=== PATIENT | female | born 1930 | race Caucasian/White ===

== ENCOUNTER 2018-07-26 06:16 | Inpatient (IN) | payer OTHER, BC ==
[2018-07-26 06:32] VITALS: BMI 24.4
[2018-07-26] MEDS ORDERED: dilTIAZem HCL 50 MG/10 ML - 10 ML VIAL ONE (06:33)
[2018-07-26] MEDS ORDERED: dilTIAZem HCL 50 MG/10 ML - 10 ML VIAL IVPUSH ONE ×2 (06:33→23:38)
[2018-07-26] MEDS ORDERED: NITROGLYCERIN SUBLINGUAL 1/150 0.4 MG TAB SL ONE (06:33)
[2018-07-26] MEDS ORDERED: SODIUM CHLORIDE 0.9% 500 ML INFUS.BAG IV ONE (06:34)
[2018-07-26] MEDS ORDERED: ACETAMINOPHEN 1000 MG/100 ML VIAL (NON FORMULARY) IVPB ONE (06:40)
[2018-07-26] MEDS ORDERED: CEFTRIAXONE 1 GM in DEXTROSE 5%-WATER - 100 ML IVPB ONE (06:41)
--- NOTE | 2018-07-26 06:43 | PDOC ---
History of Present Illness - General Chief Complaint: Shortness of Breath Stated Complaint: SOB Time Seen by Provider: 07/26/18 06:20 History Source: Patient, Family Exam Limitations: No Limitations - History of Present Illness Initial Comments: 07/26/18 06:59 Pt comes with SOB and not feeling well. She is visiting from [facility] where her PMD is. Timing/Duration: 1-3 hours, 4-6 hours Severity: severe Associated Symptoms: reports: cough, fever/chills, malaise, shortness of breath , weakness Past History - Travel Traveled outside of the country in the last 30 days: No - Past Medical History Allergies/Adverse Reactions: Allergies Allergy/AdvReac Type Severity Reaction Status Date / Time Sulfa (Sulfonamide Allergy Verified 07/26/18 06:32 Antibiotics) Home Medications: Ambulatory Orders Atenolol [Tenormin] 25 mg PO DAILY 07/26/18 Digoxin [Lanoxin -] 0.125 mg PO DAILY 07/26/18 Diltiazem HCl [Diltiazem ER] 360 mg PO DAILY 07/26/18 Furosemide [Lasix] 20 mg PO DAILY 07/26/18 Prednisone 5 mg PO DAILY 07/26/18 Sertraline HCl 100 mg PO DAILY 07/26/18 Tramadol HCl PRN 07/26/18 Warfarin Sodium [Coumadin] 2.5 mg PO DAILY 07/26/18 Cardiac Disorders: Yes (AFIB) COPD: No HTN: Yes Psychiatric Problems: Yes (DEPRESSION) Other medical history: ARTHRITIS - Suicide/Smoking/Psychosocial Hx Smoking History: Never smoked Substance Use Type: None Review of Systems - Review of Systems Able to Perform ROS?: Yes Is the patient limited Nigerien proficient: No Constitutional: Yes: Diaphoresis, Fever, Malaise. No: Symptoms Reported, See HPI, Chills, Loss of Appetite, Night Sweats, Weakness, Weight Stable, Unintentional Wgt. Loss, Unexplained wgt Loss, Other HEENTM: No: Symptoms Reported, See HPI, Eye Pain, Blurred Vision, Tearing, Recent change in vision, Double Vision, Cataracts, Ear Pain, Ocular Prothesis, Ear Discharge, Nose Pain, Nose Congestion, Tinnitus, Nose Bleeding, Hearing Loss , Throat Pain, Throat Swelling, Mouth Pain, Dental Problems, Difficulty Swallowing, Mouth Swelling, Other Respiratory: Yes: Cough, Shortness of Breath, Wheezing. No: Symptoms reported, See HPI, Orthopnea, SOB with Exertion, SOB at Rest, Stridor, Productive cough, Hemoptysis, Other Cardiac (ROS): Yes: Irregular Heart Rate. No: Symptoms Reported, See HPI, Chest Pain, Edema, Lightheadedness, Palpitations, Syncope, Chest Tightness, Other ABD/GI: No: Symptoms Reported, See HPI, Abdominal Distended, Abd. Pain w/ defecation, Blood Streaked Bowels, Constipated, Diarrhea, Difficulty Swallowing , Nausea, Poor Appetite, Poor Fluid Intake, Rectal Bleeding, Vomiting, Indigestion, Abdominal cramping, Tarry Stools, Other : No: Symptoms Reported, See HPI, Burning, Dysuria, Discharge, Frequency, Flank Pain, Hematuria, Incontinence, Pain, Urgency, Testicular Mass, Testicular Swelling, Lesions, Testicular Pain, Other Musculoskeletal: No: Symptoms Reported, See HPI, Back Pain, Gout, Joint Pain, Joint Swelling, Muscle Pain, Muscle Weakness, Neck Pain, Joint Stiffness, Other Integumentary: No: Symptoms Reported, See HPI, Bruising, Change in Color, Change in Hair/Nails, Dryness, Erythema, Flushing, Lesions, Lumps, Pallor, Pruritus, Rash, Sweating, Other Psychiatric: No: Anxiety, Depression, Frequent Crying, Stressors, Sleep Pattern Change, Emotional Problems, Mood Swings, Change in Appetite, Other *Physical Exam - Vital Signs Last Vital Signs Temp Pulse Resp BP Pulse Ox 152 H 30 H 161/93 100 07/26/18 06:22 07/26/18 06:22 07/26/18 06:22 07/26/18 06:22 - Physical Exam General Appearance: Yes: Nourished, Severe Distress. No: Appropriately Dressed , Apparent Distress, Disheveled, Mild Distress, Moderate Distress, Alcohol on Breath, Intoxicated, Cachetic, Obese, Thin, Other HEENT: positive: EOMI, TO, Normal ENT Inspection, Normal Voice, Symmetrical, TMs Normal, Pharynx Normal. negative: Pale Conjunctivae, Photophobia, Scleral Icterus (R), Scleral Icterus (L), Muffled/Hoarse voice, Pharyngeal Erythema, Tonsillar Exudate, Tonsillar Erythema, Nasal Congestion, Rhinorrhea, Sinus Tenderness, Orbits, Hearing Decreased, Hearing Grossly Normal, TM Bulging, TM Dull, TM Erythema, Lesions, Dailey, Excessive drooling, Thrush, Other Neck: positive: Trachea midline, Supple. negative: Tender, Normal Thyroid, Rigid, Carotid bruit, Decreased range of motion, Stridor, Lymphadenopathy (R), Lymphadenopathy (L), Rigidity, Tender lateral, Tender midline, Thyromegaly, Other Respiratory/Chest: positive: Labored Respiration, Rales, Rhonchi. negative: Chest Tender, Lungs Clear, Normal Breath Sounds, Respiratory Distress, Accessory Muscle Use, Rapid RR, Decreased Breath Sounds, Paradoxal Breathing, Crackles, Stridor, Wheezing, Hyperresonant, Dullness, Plerual Rub, Other Cardiovascular: positive: Tachycardia, Irregularly Irregular. negative: Regular Rhythm, Regular Rate, S1, S2, Edema, JVD, Murmur, Bradycardia, Diastolic Murmur, Systolic Murmur, Gallop/S3, Gallop/S4, Irregular, Other Female Pelvic Exam: positive: normal external exam. negative: cervical os closed, normal adnexa, normal size ovaries, CMT, discharge, lesions, Bartholin mass, Scalene Gland, adnexal tenderness, uterus, Urethra, vaginal bleeding, other Gastrointestinal/Abdominal: positive: Normal Bowel Sounds, Flat, Soft. negative : Tender, Organomegaly, Pulsatile Mass, Increased Bowel Sounds, Decreased BS, Protuberent, Distended, Guarding, Rebound, Tenderness, Hernia, Mass, Hepatomegaly, Spleenomegaly, Other Musculoskeletal: positive: Normal Inspection. negative: CVA Tenderness Extremity: positive: Normal Capillary Refill, Normal Inspection, Normal Range of Motion, Pelvis Stable. negative: Tender, Coldness, Cyanosis, Delayed Capillary Refill, Pedal Edema, Swelling, Calf Tenderness, Erythema, Inflammation , Other Integumentary: positive: Normal Color, Dry, Warm. negative: Cyanotic, Erythema , Jaundice, Mottled, Pale, Cold, Clammy, Diaphoresis, Moist, Hives, Petechiae, Rash, Swelling, Ecchymosis, Bruising, Other Neurologic: positive: municipal clerk II-XII NML intact, Fully Oriented, Alert, Normal Mood/ Affect, Normal Response (pt has pitting edema of legs), Motor Strength 5/5 Medical Decision Making - Medical Decision Making 07/26/18 07:02 Pt arrived with EMS; BP >188 systolic. 100% NRB; SOB and tachyarrhythmia Given 3 SLNTG as well as 10 diltiazem. BP came down to 145systolic and HR went from 140s to 80s. Pt's bloods drawn; lactic acid and blood culture as she is febriole 100.7F Pt received ofirmev and lasix 40mgIV Drew cath placed. Pt received 1g Rocephin. SHE STILL REQUIRES zithromax Labs pending. CXR ordered. BiPAP called for - on standby, as pt improved with initial care. Pt likely pneumonia, rapid afib; APE. She went out yesterday and ate salty foods and things that she usually never eats. Pt will be signed out to the day attending. She needs admission to med surg HOSPITALIST *DC/Admit/Observation/Transfer Diagnosis at time of Disposition: Pneumonia, Rapid atrial fibrillation, Pulmonary edema - Discharge Dispostion Condition at time of disposition: Guarded - Referrals - Patient Instructions - Post Discharge Activity
[2018-07-26] MEDS ORDERED: ACETAMINOPHEN INJECTION 100 ML IVPB ONE (06:47)
[2018-07-26] MEDS ORDERED: cefTRIAXone SODIUM 1 GM VIAL ONE (06:47)
[2018-07-26] MEDS ORDERED: FUROSEMIDE 40 MG/4 ML INJECTABLE VIAL IVPUSH ONE (06:58)
[2018-07-26] MEDS ORDERED: FUROSEMIDE 40 MG/4 ML INJECTABLE VIAL ONE (06:59)
[2018-07-26] MEDS ORDERED: AZITHROMYCIN IVPB 500 MG in DEXTROSE 5%-WATER - 250 ML IVPB ONE (07:09)
[2018-07-26] MEDS ORDERED: AZITHROMYCIN 500 MG VIAL IVPB ONE (07:14)
--- NOTE | 2018-07-26 07:53 | PDOC ---
*Physical Exam - Vital Signs Last Vital Signs Temp Pulse Resp BP Pulse Ox 100.7 F H 92 H 26 H 146/67 97 07/26/18 06:40 07/26/18 07:12 07/26/18 07:12 07/26/18 06:40 07/26/18 07:12 - Physical Exam Comments: 07/26/18 07:42 GENERAL: Awake, alert, and fully oriented, in no acute distress EYES: PERRLA, sclera anicteric, conjunctiva clear ENT: Hard of hearing. Moist mucosa NECK: no JVD LUNGS: +Rales at R lung base. Good air movement. No crackles. No increased WOB HEART: Irregularly irregular, rate fluctuating btwn 90s-130s. +3/6 systolic ejection murmur ABDOMEN: Soft, nontender, normoactive bowel sounds. No guarding, no rebound. No masses RECTAL: no bleeding, temp 100.7 EXTREMITIES: WWP. 1+ symmetric b/l pitting edema to the knees b/l NEUROLOGICAL: Normal speech, cranial nerves intact, 5/5 strength in all 4 extremities, normal sensation to light touch in all 4 extremities SKIN: Warm, Dry, normal turgor, no rashes or lesions noted. ED Treatment Course - LABORATORY CBC & Chemistry Diagram: 07/26/18 06:45 07/26/18 06:45 - RADIOLOGY Radiology Studies Ordered: Category Date Time Status CHEST X-RAY PORTABLE* [RAD] Stat Radiology 07/26/18 07:33 Ordered - Medications Given in the ED: ED Medications Discontinued Medications Generic Name Dose Route Start Last Admin Trade Name Aramq PRN Reason Stop Dose Admin Acetaminophen 1,000 mg 07/26/18 06:40 07/26/18 07:00 Ofirmev Injection - IVPB 07/26/18 06:41 1,000 mg ONCE ONE Administration Diltiazem HCl 10 mg 07/26/18 06:33 07/26/18 06:39 Cardizem Injection - IVPUSH 07/26/18 06:34 10 mg ONCE ONE Administration Furosemide 40 mg 07/26/18 06:58 07/26/18 07:10 Lasix Injection - IVPUSH 07/26/18 06:59 40 mg ONCE ONE Administration Ceftriaxone Sodium 1 gm/ 100 mls @ 200 mls/hr 07/26/18 06:41 07/26/18 07:10 Dextrose IVPB 07/26/18 07:10 200 mls/hr ONCE ONE Administration Protocol Nitroglycerin 1.2 mg 07/26/18 06:33 07/26/18 06:39 Nitrostat - SL 07/26/18 06:34 1.2 mg ONCE ONE Administration Sodium Chloride 250 ml 07/26/18 06:34 07/26/18 07:20 Normal Saline - IV 07/26/18 06:35 Not Given ONCE ONE Medical Decision Making - Medical Decision Making 07/26/18 07:53 Care recieved at 0700 Briefly, 88-year-old female with MMP including CHF presents with acute pulmonary edema, fever. Patient is now s/p 3 sublingual nitroglycerin, IV lasix 40 mg, ceftriaxone 1 g, Zithromax 500mg, acetaminophen 1G, diltiazem 10mg. On evaluation, HR fluctuating btwn 90s-140s, BP 140/80, RR 20, sat 100% Pt in NAD, states she feels much better, denies CP, +minimal SOB. Exam with rales at lung base, systolic murmur, trace to 1+ LE pitting edema. EKG reviewed, +CARLOS EDUARDO in AVR and diffuse inferiolateral STD, likely rate related but will repeat once rate controlled. Pt with no CP and minimal SOB at this time , unlikely ACS. Will hold off on bipap in light of response to medications so far and clinical improvement All labs pending Added digoxin level, CXR Also ordered home dose of diltiazem 360mg ER (confirmed pt usually takes in AM with her daughter) Will hold off on atenolol given acute decompensated CHF Likely APE after high salt intake yesterday but given fever, pt may also have superimposed PNA. Murmur/RVR likely contributing to pulm edema. Discussed dispo with son, pt will need transfer to [facility] ICU vs tele once workup more complete. Plan to also call cards c/s 07/26/18 10:12 Pt clinically improved HR now down to 90s-110s CXR with mild congestion, +cardiomegaly Case discussed with Dr. Don (cards), will send pt down to [facility] tele. Also discussed EKG, agrees it likely to be rate related changes and not STEMI in absence of CP/SOB Case discussed with Dr. Huntley - pt admitted to telemetry Case discussed in detail with admitting physician including history, physical exam and ancillary studies. Admitting physician has assumed care for the patient, will follow all pending diagnostics and will complete the evaluation and treatment. 07/26/18 14:39 Pt and son do not want to go down to [facility] and prefer to stay at [facility] Explained to patient that while she is stable now, if her clinical condition were to go south, we do not have the same resources here at [facility]. I explained that we do not have an ICU here which means if she were to decompensate, she would have to be transferred out. I also explained that aircraft load controller Dr. Don recommends she go down to [facility] as well, especially because we do not know the extent of her CHF (unknown EF). Pt and son express understanding of this recommendation and the risks of staying, but still prefer to stay at [facility] [place]. Pt's son states they have a DNR for their mother should her heart stop. Updated Dr. Don/Audi about the above. Will request bed at [facility]. *DC/Admit/Observation/Transfer Diagnosis at time of Disposition: Pneumonia, Rapid atrial fibrillation, Pulmonary edema - Discharge Dispostion Condition at time of disposition: Guarded Decision to Admit order: Yes - Referrals - Patient Instructions - Post Discharge Activity - Attestations Physician Attestion: 07/26/18 10:14 I, Dr. Josefina Toney MD, attest that this document has been prepared under my direction and personally reviewed by me in its entirety. I further attest, that it accurately reflects all work, treatment, procedures and medical decision -making performed by me.
[2018-07-26 08:34] LABS: BASO % 0.1 % (0-2.0); EOS % 0.6 % (0-4.5); HEMATOCRIT 38.9 % (32.4-45.2); HEMOGLOBIN 12.6 GM/dl (10.7-15.3); LYMPH % 9.7 % (8-40); MCH 29.7 pg (25.7-33.7); MCHC 32.5 g/dl (32.0-36.0); MEAN CELL VOLUME 91.5 fl (80-96); MEAN PLT VOLUME 8.5 fl (7.5-11.1); MONO % 5.5 % (3.8-10.2); NEUT % 84.1 % (42.8-82.8); PLATELET COUNT 309 K/MM3 (134-434); RBC 4.25 M/mm3 (3.60-5.2); RDW 14.4 % (11.6-15.6); WHITE BLOOD COUNT 12.7 K/mm3 (4.0-10.8)
[2018-07-26 08:50] LABS: ALBUMIN 3.7 g/dl (3.5-5.0); ALK PHOS 95 U/L (32-92); ANION GAP 10 MMOL/L (8-16); BILIRUBIN,TOTAL 0.8 mg/dl (0.2-1.0); BLOOD UREA NITROGEN 27 mg/dl (7-18); CALCIUM 8.8 mg/dl (8.4-10.2); CHLORIDE 99 mmol/L (98-107); CO2 26 mmol/L (22-28); CREATININE 0.7 mg/dl (0.6-1.3); GLUCOSE,RANDOM 144 mg/dl (74-106); POTASSIUM 3.5 mmol/L (3.5-5.1); SGOT/AST 44 U/L (10-42); SGPT/ALT 42 U/L (10-40); SODIUM 135 mmol/L (136-145); TOT PROT 7.1 g/dl (6.4-8.3)
[2018-07-26 08:56] LABS: URINE APPEARANCE Clear; URINE BILIRUBIN Negative (NEGATIVE); URINE COLOR Yellow; URINE GLUCOSE (UA) Trace (NEGATIVE); URINE KETONE Negative (NEGATIVE); URINE LEUK ESTERASE Negative (NEGATIVE); URINE NITRITE Negative (NEGATIVE); URINE PROTEIN 3+ (NEGATIVE); URINE UROBILINOGEN 0.2 (0.2-1.0)
[2018-07-26 09:25] LABS: ACTIVATED PTT 39.5 SECONDS (25.2-36.5)
[2018-07-26 09:29] LABS: INR 3.87 (0.82-1.09); PROTHROMBIN TIME (PATIENT) 42.2 SEC (10.2-13.0)
[2018-07-26 09:33] LABS: EPI CELLS FEW /HPF; URINE BACTERIA FEW /hpf (NEGATIVE)
[2018-07-26 09:34] LABS: URINE CASTS FINELY GRANULAR 0-1 /hpf
[2018-07-26 10:19] LABS: N-TERMINAL BNP 1610.4 pg/ml (5-450)
[2018-07-26] MEDS ORDERED: ENOXAPARIN NA (PORCINE) 40 MG/0.4 ML DISP.SYRIN SQ SCH (14:45)
--- NOTE | 2018-07-26 17:08 | EKG ---
Test Reason : Blood Pressure : / mmHG Vent. Rate : 113 BPM Atrial Rate : 092 BPM P-R Int : 000 ms QRS Dur : 080 ms QT Int : 338 ms P-R-T Axes : 000 055 186 degrees QTc Int : 463 ms ATRIAL FIBRILLATION WITH RAPID VENTRICULAR RESPONSE MODERATE VOLTAGE CRITERIA FOR LVH, MAY BE NORMAL VARIANT MARKED ST ABNORMALITY, POSSIBLE INFEROLATERAL SUBENDOCARDIAL INJURY ABNORMAL ECG NO PREVIOUS ECGS AVAILABLE Confirmed by MD Rony, ([id number]) on 07/26/2018 5:07:57 PM Referred By: MD TAVERA Confirmed By:Daniel Uribe MD
[2018-07-26] MEDS ORDERED: TRAMADOL HCL 50 MG PO PRN (19:23)
[2018-07-26] MEDS: DIGOXIN 0.125 MG TABLET (FP) PO ONE ×2 (19:55→19:56)
[2018-07-26] MEDS ORDERED: ATENOLOL 25 MG TABLET (FP) PO SCH (20:00)
[2018-07-26] MEDS ORDERED: traMADol HCL 50 MG TABLET PO PRN ×2 (20:07→23:12)
[2018-07-26 21:15] LABS: ANION GAP 10 MMOL/L (8-16); BLOOD UREA NITROGEN 18 mg/dl (7-18); CALCIUM 8.7 mg/dl (8.4-10.2); CHLORIDE 99 mmol/L (98-107); CO2 27 mmol/L (22-28); CREATININE 0.7 mg/dl (0.6-1.3); GLUCOSE,RANDOM 130 mg/dl (74-106); POTASSIUM 3.4 mmol/L (3.5-5.1); SODIUM 136 mmol/L (136-145)
[2018-07-26] MEDS ORDERED: POTASSIUM CHLORIDE TABS 20 MEQ TABLET.ER (FP) PO ONE (23:08)
--- NOTE | 2018-07-26 23:23 | HP ---
CHIEF COMPLAINT: SOB, palpitations, not feeling well PCP: dillon Lockett HISTORY OF PRESENT ILLNESS: This is an 88 year old female with a past medical history significant for afib on coumadin and HTN who presented to the ED due to SOB, palpitations and not feeling well. Pt was noted to be febrile upon arrival to the ED. Upon exam pt reports feeling much better. The SOB and palpitations have resolved. ER course was notable for: (1) Trop 0.04 (2) BNP 1610 (3) lactic acid 2.5, then up to 3.4 Recent Travel: pt denies PAST MEDICAL HISTORY: HTN, Afib on coumadin, depression, arthritis PAST SURGICAL HISTORY: appendectomy as a child Social History: Smoking: pt denies Alcohol: pt denies Drugs: pt denies Family History: Family all lived in [facility], unknown COD. Brother "young" but unknown why Allergies Sulfa (Sulfonamide Antibiotics) Allergy (Verified 07/26/18 06:32) HOME MEDICATIONS: 3 Medication Instructions Recorded Atenolol [Tenormin] 25 mg PO DAILY 07/26/18 Digoxin [Lanoxin -] 0.125 mg PO DAILY 07/26/18 Diltiazem HCl [Diltiazem ER] 360 mg PO DAILY 07/26/18 Furosemide [Lasix] 20 mg PO DAILY 07/26/18 Prednisone 5 mg PO DAILY 07/26/18 Sertraline HCl 100 mg PO DAILY 07/26/18 Tramadol HCl 50 mg PO QID PRN MDD 200 07/26/18 Warfarin Sodium [Coumadin] 2.5 mg PO DAILY 07/26/18 REVIEW OF SYSTEMS CONSTITUTIONAL: Absent: fever, chills, diaphoresis, generalized weakness, malaise, loss of appetite, weight change HEENT: Absent: rhinorrhea, nasal congestion, throat pain, throat swelling, difficulty swallowing, mouth swelling, ear pain, eye pain, visual changes CARDIOVASCULAR: Present: palpitations Absent: chest pain, syncope, irregular heart rate, lightheadedness, peripheral edema RESPIRATORY: Present: shortness of breath Absent: cough, dyspnea with exertion, orthopnea, wheezing, stridor, hemoptysis GASTROINTESTINAL: Absent: abdominal pain, abdominal distension, nausea, vomiting, diarrhea, constipation, melena, hematochezia GENITOURINARY: Absent: dysuria, frequency, urgency, hesitancy, hematuria, flank pain, genital pain MUSCULOSKELETAL: Absent: myalgia, arthralgia, joint swelling, back pain, neck pain SKIN: Absent: rash, itching, pallor HEMATOLOGIC/IMMUNOLOGIC: Absent: easy bleeding, easy bruising, lymphadenopathy, frequent infections ENDOCRINE: Absent: unexplained weight gain, unexplained weight loss, heat intolerance, cold intolerance NEUROLOGIC: Absent: headache, focal weakness or paresthesias, dizziness, unsteady gait, seizure, mental status changes, bladder or bowel incontinence PSYCHIATRIC: Absent: anxiety, depression, suicidal or homicidal ideation, hallucinations. PHYSICAL EXAMINATION Vital Signs - 24 hr 07/26/18 07/26/18 07/26/18 06:22 06:40 07:12 Temperature 100.7 F H Pulse Rate 152 H Pulse Rate [ 121 H 92 H Apical] Respiratory 30 H 24 H 26 H Rate Blood Pressure 161/93 Blood Pressure 146/67 [Arm] O2 Sat by Pulse 100 97 Oximetry (%) 07/26/18 07/26/18 07/26/18 07:43 10:13 11:11 Temperature 99.1 F Pulse Rate Pulse Rate [ 114 H 103 H 87 Apical] Respiratory 20 18 20 Rate Blood Pressure Blood Pressure 134/74 131/93 147/90 [Arm] O2 Sat by Pulse 96 98 98 Oximetry (%) 07/26/18 07/26/18 07/26/18 11:48 12:15 13:29 Temperature 99.1 F Pulse Rate 93 H Pulse Rate [ 83 73 Apical] Respiratory 20 18 Rate Blood Pressure Blood Pressure 142/83 133/54 L [Arm] O2 Sat by Pulse 99 98 99 Oximetry (%) 07/26/18 07/26/18 07/26/18 15:35 16:58 17:11 Temperature 97.8 F Pulse Rate 68 Pulse Rate [ 65 Apical] Respiratory 17 18 Rate Blood Pressure 137/82 Blood Pressure 140/83 [Arm] O2 Sat by Pulse 98 98 Oximetry (%) 07/26/18 07/26/18 07/26/18 19:00 19:55 20:08 Temperature 99.1 F Pulse Rate 120 H 123 H Pulse Rate [ Apical] Respiratory 21 H 21 H Rate Blood Pressure 154/84 Blood Pressure [Arm] O2 Sat by Pulse 98 Oximetry (%) GENERAL: Awake, alert, and fully oriented, in no acute distress. HEAD: Normal with no signs of trauma. EYES: Pupils equal, round and reactive to light, extraocular movements intact, sclera anicteric, conjunctiva clear. No lid lag. EARS, NOSE, THROAT: Ears normal, nares patent, oropharynx clear without exudates. Moist mucous membranes. NECK: Normal range of motion, supple without lymphadenopathy, JVD, or masses. LUNGS: Breath sounds equal, clear to auscultation bilaterally. No wheezes, and no crackles. No accessory muscle use. HEART: Irregular rate and rhythm, normal S1 and S2 without murmur, rub or gallop. ABDOMEN: Soft, nontender, not distended, normoactive bowel sounds, no guarding, no rebound, no masses. No hepatomegaly or splenomegaly. MUSCULOSKELETAL: Normal range of motion at all joints. No bony deformities or tenderness. No CVA tenderness. UPPER EXTREMITIES: 2+ pulses, warm, well-perfused. No cyanosis. No clubbing. No peripheral edema. LOWER EXTREMITIES: 2+ pulses, warm, well-perfused. No calf tenderness. No peripheral edema. NEUROLOGICAL: Cranial nerves II-XII intact. Normal speech. Normal gait. PSYCHIATRIC: Cooperative. Good eye contact. Appropriate mood and affect. SKIN: Warm, dry, normal turgor, no rashes or lesions noted, normal capillary refill. Laboratory Results - last 24 hr 3 07/26/18 07/26/18 07/26/18 06:45 06:45 06:45 WBC 12.7 H RBC 4.25 Hgb 12.6 Hct 38.9 MCV 91.5 MCH 29.7 MCHC 32.5 RDW 14.4 Plt Count 309 MPV 8.5 Absolute Neuts (auto) 10.7 Neutrophils % 84.1 H Lymphocytes % 9.7 Monocytes % 5.5 Eosinophils % 0.6 Basophils % 0.1 PT with INR 42.2 H INR 3.87 H PTT (Actin FS) 39.5 H Sodium Potassium Chloride Carbon Dioxide Anion Gap BUN Creatinine Creat Clearance w eGFR Random Glucose Lactic Acid Calcium Total Bilirubin AST ALT Alkaline Phosphatase Creatine Kinase Troponin I B-Natriuretic Peptide Total Protein Albumin Urine Color Yellow Urine Appearance Clear Urine pH 7.0 Ur Specific [place] 1.025 Urine Protein 3+ H Urine Glucose (UA) Trace Urine Ketones Negative Urine Blood Trace-intact H Urine Nitrite Negative Urine Bilirubin Negative Urine Urobilinogen 0.2 Ur Leukocyte Esterase Negative Urine RBC 2-5 Urine WBC 2-5 Ur Epithelial Cells Few Urine Bacteria Few Urine Casts Finely granular 0-1 Digoxin 3 07/26/18 07/26/18 07/26/18 06:45 06:45 07:26 07:31 14:56 15:02 WBC RBC Hgb Hct MCV MCH MCHC RDW Plt Count MPV Absolute Neuts (auto) Neutrophils % Lymphocytes % Monocytes % Eosinophils % Basophils % PT with INR INR PTT (Actin FS) Sodium 135 L Potassium 3.5 Chloride 99 Carbon Dioxide 26 Anion Gap 10 BUN 27 H Creatinine 0.7 Creat Clearance w eGFR > 60 Random Glucose 144 H Lactic Acid 2.5 H* 3.4 H* Calcium 8.8 Total Bilirubin 0.8 AST 44 H ALT 42 H Alkaline Phosphatase 95 H Creatine Kinase 29 29 Troponin I 0.04 0.06 B-Natriuretic Peptide 1610.4 H Total Protein 7.1 Albumin 3.7 Urine Color Urine Appearance Urine pH Ur Specific [place] Urine Protein Urine Glucose (UA) Urine Ketones Urine Blood Urine Nitrite Urine Bilirubin Urine Urobilinogen Ur Leukocyte Esterase Urine RBC Urine WBC Ur Epithelial Cells Urine Bacteria Urine Casts Digoxin Cancelled 0.99 3 07/26/18 07/26/18 07/26/18 20:40 20:40 20:40 WBC RBC Hgb Hct MCV MCH MCHC RDW Plt Count MPV Absolute Neuts (auto) Neutrophils % Lymphocytes % Monocytes % Eosinophils % Basophils % PT with INR INR PTT (Actin FS) Sodium 136 Potassium 3.4 L Chloride 99 Carbon Dioxide 27 Anion Gap 10 BUN 18 Creatinine 0.7 Creat Clearance w eGFR > 60 Random Glucose 130 H Lactic Acid 2.1 H Calcium 8.7 Total Bilirubin AST ALT Alkaline Phosphatase Creatine Kinase 28 Troponin I 0.05 B-Natriuretic Peptide Total Protein Albumin Urine Color Urine Appearance Urine pH Ur Specific [place] Urine Protein Urine Glucose (UA) Urine Ketones Urine Blood Urine Nitrite Urine Bilirubin Urine Urobilinogen Ur Leukocyte Esterase Urine RBC Urine WBC Ur Epithelial Cells Urine Bacteria Urine Casts Digoxin ECG Atrial fibrillation vent rate 78, QTC 453 mod voltage criteria for LVH ST depression lead II, v4-V6; TWI lead 3, aVF Radiology Reports CXR Impression: Enlarged cardiac silhouette. Mild pulmonary vascular congestion. No evidence of airspace consolidation. No sizable pleural effusion. Reported By: Valerie Dunbar DO 07/26/18 0849 ASSESSMENT/PLAN: 88yF with PMH Afib on coumadin, HTN, depression, arthritis presented to the ED with SOB and palpitations. Afib with RVR - rate variable 80s-120s, currently febrile. Will give tylenol. if not improved then cardizem IVP - cardiology consult - troponin neg x 3 - cont tele supratherapeutic INR - no s/s bleeding, hold coumadin CHF - echo in am - good response to lasix >2L output - cardiology consult - will defer daily lasix dosing to cardiology in am - daily weights - I&O HTN - BP slightly elevated, cont home meds, adjust if remains persistently elevated fever - CXR without clear infiltrate, u/a without indication of UTI - given zithro and ceftriaxone in ed - flu swab taken - consider CT scan Hypokalemia - kdur 20mEq po now, repeat in am depression - cont home sertraline arthritis - cont home tramadol DVT PPX - resume home coumadin when INR less than 3 FEN - hold IVF - BMP in am - low sodium diet as tolerated Dispo: pt currently requires further inpatient management of her emergent condition Visit type - Emergency Visit Emergency Visit: Yes ED Registration Date: 07/26/18 Care time: The patient presented to the Emergency Department on the above date and was hospitalized for further evaluation of their emergent condition. - New Patient This patient is new to me today: Yes Date on this admission: 07/26/18 - Critical Care Critical Care patient: No Hospitalist Screening - Colonoscopy Questionnaire Colonoscopy Questionnaire: Colonoscopy Questionnaire - Patient: 50 - 75 years old and never had a screening colonoscopy: No History of colon or rectal polyps, or CA: Unknown History of IBD, Crohn's disease or UC: Unknown History of abdominal radiation therapy as a child: Unknown - Relative: 1 with colon or rectal CA, or polyps at age 60 or younger: Unknown Colon or rectal CA diagnosed at age 45 or younger: Unknown Multiple relatives with colon or rectal CA: Unknown - Outcome: Screening Result: Negative Screen
[2018-07-26] MEDS: ACETAMINOPHEN 325 MG TABLET (FP) PO PRN (23:50)
[2018-07-27] MEDS ORDERED: dilTIAZem HCL 50 MG/10 ML - 10 ML VIAL IVPUSH ONE ×2 (01:15→09:00)
[2018-07-27] MEDS ORDERED: diphenhydrAMINE HCL 25 MG CAPSULE (FP) PO ONE (02:07)
[2018-07-27] MEDS: ACETAMINOPHEN 325 MG TABLET (FP) PO PRN ×2 (07:19→17:32)
[2018-07-27 07:53] LABS: BASO % 0.3 % (0-2.0); EOS % 0.9 % (0-4.5); HEMATOCRIT 39.2 % (32.4-45.2); HEMOGLOBIN 12.6 GM/dl (10.7-15.3); LYMPH % 10.2 % (8-40); MCH 29.6 pg (25.7-33.7); MCHC 32.3 g/dl (32.0-36.0); MEAN CELL VOLUME 91.9 fl (80-96); MEAN PLT VOLUME 8.2 fl (7.5-11.1); MONO % 9.6 % (3.8-10.2); PLATELET COUNT 267 K/MM3 (134-434); RBC 4.26 M/mm3 (3.60-5.2); RDW 14.2 % (11.6-15.6); WHITE BLOOD COUNT 7.5 K/mm3 (4.0-10.8)
[2018-07-27 08:08] LABS: BLOOD UREA NITROGEN 13 mg/dl (7-18); CREATININE < 0.6 mg/dl (0.6-1.3); GLUCOSE,RANDOM 134 mg/dl (74-106)
[2018-07-27 08:09] LABS: ALBUMIN 3.5 g/dl (3.5-5.0); ANION GAP 10 MMOL/L (8-16); BILIRUBIN,TOTAL 1.2 mg/dl (0.2-1.0); CALCIUM 8.5 mg/dl (8.4-10.2); CHLORIDE 101 mmol/L (98-107); CO2 26 mmol/L (22-28); MAGNESIUM 1.9 mg/dL (1.8-2.4); POTASSIUM 3.5 mmol/L (3.5-5.1); SODIUM 137 mmol/L (136-145); TOT PROT 6.9 g/dl (6.4-8.3)
[2018-07-27 08:10] LABS: ALK PHOS 65 U/L (32-92); SGOT/AST 30 U/L (10-42); SGPT/ALT 32 U/L (10-40)
[2018-07-27] MEDS ORDERED: MAGNESIUM SULF 50% (8.12 MEQ/2 ML-1 GM VIAL) IVPB ONE (08:11)
--- NOTE | 2018-07-27 08:12 | PN ---
Physical Exam: SUBJECTIVE: Patient seen and examined, patient is sitting up in bed, eating breakfast, denies any chest pain or shortness of breath. reports discomfort from maddox cather. OBJECTIVE: Patient is a 88 y/o female with a past medical history of afib ( coumadin), hypertension, HLD, and depression. Patient was admitted from the emergency department for rapid afib and fever of unknown injury. Vital Signs Period Temp Pulse Resp BP Sys/Salmeron Pulse Ox Last 24 Hr 97.8 F-101.3 F 65-136 17-21 131-162/54-93 91-99 GENERAL: The patient is awake, alert, and fully oriented, in no acute distress. HEAD: Normal with no signs of trauma. EYES: PERRL, extraocular movements intact, sclera anicteric, conjunctiva clear. No ptosis. ENT: Ears normal, nares patent, oropharynx clear without exudates, moist mucous membranes. NECK: Trachea midline, full range of motion, supple. LUNGS: Breath sounds equal, clear to apexes, fine crackles to bases, no wheezes , no accessory muscle use. HEART: irregular rate and rhythm, S1, S2 without murmur, rub or gallop. ABDOMEN: Soft, nontender, nondistended, normoactive bowel sounds, no guarding, no rebound, no hepatosplenomegaly, no masses. : maddox clear yellow urine draining EXTREMITIES: 2+ pulses, warm, well-perfused, +1 pre-tibial pitting edema to bilateral lower extremity. NEUROLOGICAL: Cranial nerves II through XII grossly intact. Normal speech, gait not observed. PSYCH: Normal mood, normal affect. SKIN: Warm, dry, normal turgor, no rashes or lesions noted Laboratory Results - last 24 hr CBC WBC 7.5 K/mm3 (4.0-10.8) 07/27/18 07:00 RBC 4.26 M/mm3 (3.60-5.2) 07/27/18 07:00 Hgb 12.6 GM/dl (10.7-15.3) 07/27/18 07:00 Hct 39.2 % (32.4-45.2) 07/27/18 07:00 MCV 91.9 fl (80-96) 07/27/18 07:00 MCH 29.6 pg (25.7-33.7) 07/27/18 07:00 MCHC 32.3 g/dl (32.0-36.0) 07/27/18 07:00 RDW 14.2 % (11.6-15.6) 07/27/18 07:00 Plt Count 267 K/MM3 (134-434) 07/27/18 07:00 MPV 8.2 fl (7.5-11.1) 07/27/18 07:00 Absolute Neuts (auto) 5.9 K/mm3 07/27/18 07:00 Neutrophils % 79.0 % (42.8-82.8) 07/27/18 07:00 Lymphocytes % 10.2 % (8-40) 07/27/18 07:00 Monocytes % 9.6 % (3.8-10.2) 07/27/18 07:00 Eosinophils % 0.9 % (0-4.5) 07/27/18 07:00 Basophils % 0.3 % (0-2.0) 07/27/18 07:00 CMP Sodium 137 mmol/L (136-145) 07/27/18 07:00 Potassium 3.5 mmol/L (3.5-5.1) 07/27/18 07:00 Chloride 101 mmol/L (98-107) 07/27/18 07:00 Carbon Dioxide 26 mmol/L (22-28) 07/27/18 07:00 Anion Gap 10 MMOL/L (8-16) 07/27/18 07:00 BUN 13 mg/dl (7-18) 07/27/18 07:00 Creatinine < 0.6 mg/dl (0.6-1.3) L 07/27/18 07:00 Creat Clearance w eGFR > 60 (>60) 07/27/18 07:00 Random Glucose 134 mg/dl (74-106) H 07/27/18 07:00 Lactic Acid 2.1 mmol/L (0.4-2.0) H 07/26/18 20:40 Calcium 8.5 mg/dl (8.4-10.2) 07/27/18 07:00 Magnesium 1.9 mg/dL (1.8-2.4) 07/27/18 07:00 Total Bilirubin 1.2 mg/dl (0.2-1.0) H 07/27/18 07:00 AST 30 U/L (10-42) D 07/27/18 07:00 ALT 32 U/L (10-40) D 07/27/18 07:00 Alkaline Phosphatase 65 U/L (32-92) D 07/27/18 07:00 Creatine Kinase 28 IU/L (26-192) 07/26/18 20:40 Troponin I 0.05 ng/ml (0.00-0.06) 07/26/18 20:40 B-Natriuretic Peptide 1610.4 pg/ml (5-450) H 07/26/18 07:31 Total Protein 6.9 g/dl (6.4-8.3) 07/27/18 07:00 Albumin 3.5 g/dl (3.5-5.0) 07/27/18 07:00 Laboratory Tests 07/27/18 07:00 INR 2.10 H Active Medications Generic Name Dose Route Start Last Admin Trade Name Freq PRN Reason Stop Dose Admin Acetaminophen 650 mg 07/26/18 23:44 07/27/18 07:19 Tylenol - PO 650 mg Q6H PRN Administration FEVER Atenolol 25 mg 07/26/18 20:00 07/26/18 19:57 Tenormin - PO 25 mg DAILY BREANNA Administration Digoxin 0.125 mg 07/27/18 10:00 Lanoxin - PO DAILY BREANNA Diltiazem HCl 360 mg 07/27/18 10:00 Cardizem Cd - PO DAILY [facility] Potassium Chloride 40 meq 07/27/18 08:11 K-Dur - PO 07/27/18 08:12 ONCE ONE Prednisone 5 mg 07/27/18 10:00 Deltasone - PO DAILY BREANNA Sertraline HCl 100 mg 07/27/18 10:00 Zoloft - PO DAILY BREANNA Tramadol HCl 50 mg 07/26/18 23:12 07/27/18 00:29 Ultram - PO 50 mg QID PRN Administration PAIN LEVEL 6-10 Microbiology 07/26/18 06:45 Blood - Peripheral Venous Blood Culture - Preliminary NO GROWTH OBTAINED AFTER 24 HOURS, INCUBATION TO CONTINUE FOR 4 DAYS. 07/26/18 06:45 Blood - Peripheral Venous Blood Culture - Preliminary NO GROWTH OBTAINED AFTER 24 HOURS, INCUBATION TO CONTINUE FOR 4 DAYS. 07/27/18 00:00 Nasopharyngeal Swab Influenza Types A,B Antigen - Final, negative 07/27/18 00:00 Nasopharyngeal Swab - Final, negative 07/26/18 07:31 Urine - Urine - Catheterized Urine Culture - Preliminary Lactose Fermenting Neg Bacilli IMAGING chest xray: mild pulmolnary vascular congestion, no infilitrate ASSESSMENT/PLAN: 1) cardiovascular Afib with RVR - continous cardiac monitoring, rate remains 110-120's patient is asymptomatic, will give PO dose of cardizem now, cardizem 10mg IV x 1 ordered, continue home dose atenolol - pending echo today - troponin x 3 wnl - restart coumadin today -appreciate cardiology input acute excerbation of chronic congestive heart failure - pending echo today - pt diuressed yesterday, 1.1kg weight loss noted, will continue home dose cardizem - repeat cxr today hypertension - b/p is above goal, increase atenolol to bid and continue cardizem, strict b/ p monitoring q4h 2) sepsis secondary to UTI - prelim urine culture, lactose fermenting negative bacili, will start rocephin , pending final urine culture, blood culture is negative to date, leukocytosis resolved, low grade temp is noted 3) psych depression - continue home dose zoloft f/e/n - replete potassium and mg - low sodium diet ppx - resume home coumadin - pepcid - physical therapy evaluation Dispo: pt currently requires further inpatient management of her emergent condition Visit type - Emergency Visit Emergency Visit: Yes ED Registration Date: 07/26/18 Care time: The patient presented to the Emergency Department on the above date and was hospitalized for further evaluation of their emergent condition. - New Patient This patient is new to me today: Yes Date on this admission: 07/27/18 - Critical Care Critical Care patient: No - Discharge Referral Referred to [facility] Med P.C.: No
[2018-07-27 08:16] LABS: INR 2.1 (0.82-1.09); PROTHROMBIN TIME (PATIENT) 23.2 SEC (10.2-13.0)
[2018-07-27] MEDS ORDERED: POTASSIUM CHLORIDE TABS 20 MEQ TABLET.ER (FP) PO ONE (08:30)
[2018-07-27] MEDS ORDERED: MAGNESIUM 1GM/D5W - 1 GM/100 ML IVPB IVPB ONE (08:30)
--- NOTE | 2018-07-27 09:07 | CON.CARD ---
Cardiology Consult (text) - Consultation Consultation Note: Cardiology Consult 88F with AF on Warfarin, presents to ER with SOB and pulmonary vascular congestion in setting of dietary indiscretion. Also found to febrile and + UTI She is a poor historian; a call was placed to her son to obtain further hx. Today, she denies CP, SOB- stating she feels beter. No PND or orthopnea overnight. + fever and chills. Denies hx of UT or coronary revasc. PMH: AF on Coumadin HTN Unclear why on Prednisone daily ALL: Sulfa FH: Non-contrib SH: Lives in [place], visiting family. DATA: Microbiology 07/26/18 07:31 Urine - Urine - Catheterized Urine Culture - Preliminary Lactose Fermenting Neg Bacilli 07/26/18 06:45 Blood - Peripheral Venous Blood Culture - Preliminary NO GROWTH OBTAINED AFTER 24 HOURS, INCUBATION TO CONTINUE FOR 4 DAYS. 07/26/18 06:45 Blood - Peripheral Venous Blood Culture - Preliminary NO GROWTH OBTAINED AFTER 24 HOURS, INCUBATION TO CONTINUE FOR 4 DAYS. Selected Entries 07/26/18 07/27/18 23:00 08:16 Temperature 101.3 F H 99.3 F Pulse Rate 121 H Blood Pressure 150/60 Laboratory Tests 07/26/18 07/26/18 07/26/18 07:31 15:02 20:40 WBC Hgb Plt Count INR Sodium Potassium BUN Creatinine Lactic Acid Calcium Magnesium Total Bilirubin AST ALT Alkaline Phosphatase Troponin I 0.06 0.05 B-Natriuretic Peptide 1610.4 H 07/26/18 07/27/18 07/27/18 20:40 07:00 07:00 WBC 7.5 Hgb 12.6 Plt Count 267 INR Sodium 137 Potassium 3.5 BUN 13 Creatinine < 0.6 L Lactic Acid 2.1 H Calcium 8.5 Magnesium 1.9 Total Bilirubin 1.2 H AST 30 D ALT 32 D Alkaline Phosphatase 65 D Troponin I B-Natriuretic Peptide 07/27/18 07:00 WBC Hgb Plt Count INR 2.10 H Sodium Potassium BUN Creatinine Lactic Acid Calcium Magnesium Total Bilirubin AST ALT Alkaline Phosphatase Troponin I B-Natriuretic Peptide Exam: S1, 2. RRR. Loud systolic murmur audible throughout precordium @ RUSB and at apex No carotid bruits Chest CTA this AM Abd soft and NT Ext no edema ECG: AF with LVH and diffuse NSST changes likely due to dig effect/ +/- repol changes IMP: Chronic AF with RVR in setting of UTI, fever and decompensated CHF Chronic CHF: ? systolic vs diastolic vs valvular vs combined UTI ?PNA REC: 1. Continue tele 2. Echo for EF assessment and to assess valvular fxn, murmur- r/o 3. INR goal 2-3. 4. Would increase Atenolol to BID dosing as early AM heart rate is elevated. 5. Abx as per PMD 6. Call has been placed to son to clarify history.
[2018-07-27] MEDS: FUROSEMIDE 20 MG TABLET (FP) PO SCH (09:44)
[2018-07-27] MEDS: SERTRALINE HCL 50 MG TABLET (FP) PO SCH (09:44)
[2018-07-27] MEDS: CEFTRIAXONE 1 GM/50 ML BAG IVPB SCH (09:45)
[2018-07-27] MEDS: DIGOXIN 0.125 MG TABLET (FP) PO SCH (09:45)
[2018-07-27] MEDS: ATENOLOL 25 MG TABLET (FP) PO SCH ×2 (09:45→22:52)
[2018-07-27] MEDS: predniSONE 5 MG TABLET (UD) PO SCH (09:46)
[2018-07-27] MEDS: LACTOBACILLUS ACIDOPHILUS 1 TABLET PO SCH (10:30)
--- NOTE | 2018-07-27 12:18 | EKG ---
Test Reason : Blood Pressure : / mmHG Vent. Rate : 078 BPM Atrial Rate : 068 BPM P-R Int : 000 ms QRS Dur : 086 ms QT Int : 398 ms P-R-T Axes : 000 065 237 degrees QTc Int : 453 ms ATRIAL FIBRILLATION MODERATE VOLTAGE CRITERIA FOR LVH, MAY BE NORMAL VARIANT MARKED ST ABNORMALITY, POSSIBLE INFERIOR SUBENDOCARDIAL INJURY ABNORMAL ECG WHEN COMPARED WITH ECG OF 26-JUL-2018 06:36, T WAVE INVERSION LESS EVIDENT IN LATERAL LEADS Confirmed by MICHAELA ERVIN MD ([id number]) on 07/27/2018 12:18:07 PM Referred By: MISTY GUILLEN Confirmed By:MICHAELA ERVIN MD
[2018-07-27] MEDS ORDERED: WARFARIN NA 2.5 MG TABLET (FP) PO SCH (18:00)
--- NOTE | 2018-07-27 18:34 | ECHO ---
Name: SEMETIS, FOFO Exam:Adult Echocardiogram Study Date: 07/27/2018 02:07 PM Age: 88 yrs Reason For Study: CHF Height: 60 in Weight: 126 lb BSA: 1.5 m2 MMode/2D Measurements & Calculations IVSd: 1.6 cm Ao root diam: 2.6 cm LVIDd: 3.2 cm LA dimension: 4.3 cm LVIDs: 2.4 cm LVPWd: 1.5 cm EDV(Teich): 40.8 ml LVOT diam: 2.0 cm ESV(Teich): 20.1 ml Doppler Measurements & Calculations MV E max robyn: 160.7 cm/sec MV A max robyn: 86.4 cm/sec MV dec slope: 908.0 cm/sec2 MV E/A: 1.9 Ao V2 max: 290.0 cm/sec LV V1 max P.6 mmHg Ao max P.8 mmHg LV V1 mean P.1 mmHg Ao V2 mean: 203.9 cm/sec LV V1 max: 176.5 cm/sec Ao mean P.4 mmHg LV V1 mean: 133.1 cm/sec Ao V2 VTI: 66.3 cm LV V1 VTI: 39.1 cm LUCIE(I,D): 1.8 cm2 LUCIE(V,D): 1.9 cm2 MR max robyn: 471.9 cm/sec SV(LVOT): 120.3 ml MR max P.8 mmHg TR max robyn: 253.2 cm/sec PI end-d robyn: 113.1 cm/sec TR max P.9 mmHg Procedure A complete two-dimensional transthoracic echocardiogram was performed (2D, M-mode, Doppler and color flow Doppler). Left Ventricle The left ventricle is normal in size. There is moderate concentric left ventricular hypertrophy. Left ventricular systolic function is normal. Ejection Fraction = 60-65%. No regional wall motion abnormal ities noted. Right Ventricle The right ventricle is normal size. The right ventricular systolic function is normal. Atria The left atrium is mildly dilated. Right atrial size is normal. Mitral Valve There is moderate mitral annular calcification. There is mild mitral regurgitation. Tricuspid Valve The tricuspid valve is normal in structure and function. There is moderate tricuspid regurgitation. P ulmonary artery systolic pressure is at least 44 mmHg assuming RA pressure of 3 mmHg. Aortic Valve There is moderate aortic sclerosis.;. Moderate aortic regurgitation. Pulmonic Valve The pulmonic valve is not well visualized. Mild pulmonic valvular regurgitation. Great Vessels The aortic root is normal size. Pericardium/Pleura There is no pericardial effusion. Interpretation Summary The left ventricle is normal in size. There is moderate concentric left ventricular hypertrophy. Left ventricular systolic function is normal. No regional wall motion abnormalities noted. Ejection Fraction = 60-65%. The right ventricular systolic function is normal. The left atrium is mildly dilated. Right atrial size is normal. There is moderate mitral annular calcification. There is mild mitral regurgitation. There is moderate tricuspid regurgitation. Pulmonary artery systolic pressure is at least 44 mmHg assuming RA pressure of 3 mmHg There is moderate aortic sclerosis. Possilbe mild aortic valve stenosis with mean gradient of 19 mmHg Moderate aortic regurgitation. Mild pulmonic valvular regurgitation. There is no pericardial effusion. Prior study is not available for comparison Gil Walker MD 07/27/2018 06:33 PM
[2018-07-28 06:23] VITALS: BP 154/67; TEMP 98.4
--- NOTE | 2018-07-28 07:50 | DS ---
Physical Exam: SUBJECTIVE: Patient seen and examined OBJECTIVE: Vital Signs Period Temp Pulse Resp BP Sys/Salmeron Pulse Ox Last 24 Hr 97.6 F-99.3 F 58-121 18-20 110-154/52-67 94-99 PHYSICAL EXAM GENERAL: The patient is awake, alert, and fully oriented, in no acute distress. HEAD: Normal with no signs of trauma. EYES: PERRL, extraocular movements intact, sclera anicteric, conjunctiva clear. ENT: Ears normal, nares patent, oropharynx clear without exudates, moist mucous membranes. NECK: Trachea midline, full range of motion, supple. LUNGS: Breath sounds equal, clear to auscultation bilaterally, no wheezes, no crackles, no accessory muscle use. HEART: Regular rate and rhythm, S1, S2 without murmur, rub or gallop. ABDOMEN: Soft, nontender, nondistended, normoactive bowel sounds, no guarding, no rebound, no hepatosplenomegaly, no masses. EXTREMITIES: 2+ pulses, warm, well-perfused, no edema. NEUROLOGICAL: Cranial nerves II through XII grossly intact. Normal speech, gait not observed. PSYCH: Normal mood, normal affect. SKIN: Warm, dry, normal turgor, no rashes or lesions noted. LABS Laboratory Results - last 24 hr 07/27/18 07/27/18 07/27/18 07:00 07:00 07:00 WBC 7.5 RBC 4.26 Hgb 12.6 Hct 39.2 MCV 91.9 MCH 29.6 MCHC 32.3 RDW 14.2 Plt Count 267 MPV 8.2 Absolute Neuts (auto) 5.9 Neutrophils % 79.0 Lymphocytes % 10.2 Monocytes % 9.6 Eosinophils % 0.9 Basophils % 0.3 PT with INR 23.2 H INR 2.10 H Sodium 137 Potassium 3.5 Chloride 101 Carbon Dioxide 26 Anion Gap 10 BUN 13 Creatinine < 0.6 L Creat Clearance w eGFR > 60 Random Glucose 134 H Calcium 8.5 Magnesium 1.9 Total Bilirubin 1.2 H AST 30 D ALT 32 D Alkaline Phosphatase 65 D Total Protein 6.9 Albumin 3.5 HOSPITAL COURSE: Date of Admission:07/26/18 Date of Discharge: 07/28/18 Discharge Summary Reason For Visit: PULMONARY EDEMA, RAPID ATRIAL FIBRILLATION Current Active Problems Pneumonia (Acute) Pulmonary edema (Acute) Rapid atrial fibrillation (Acute) Condition: Guarded - Instructions - Home Medications Comprehensive Discharge Medication List: Ambulatory Orders Atenolol [Tenormin] 25 mg PO DAILY 07/26/18 Digoxin [Lanoxin -] 0.125 mg PO DAILY 07/26/18 Diltiazem HCl [Diltiazem ER] 360 mg PO DAILY 07/26/18 Furosemide [Lasix] 20 mg PO DAILY 07/26/18 Prednisone 5 mg PO DAILY 07/26/18 Sertraline HCl 100 mg PO DAILY 07/26/18 Tramadol HCl 50 mg PO QID PRN MDD 200 07/26/18 Warfarin Sodium [Coumadin] 2.5 mg PO DAILY 07/26/18 - Discharge Referral Referred to [facility] Med P.C.: No
[2018-07-28 08:16] LABS: INR 1.76 (0.82-1.09); PROTHROMBIN TIME (PATIENT) 19.5 SEC (10.2-13.0)
--- NOTE | 2018-07-28 10:28 | PN ---
Physical Exam: SUBJECTIVE: Patient seen and examined OBJECTIVE: Vital Signs Period Temp Pulse Resp BP Sys/Salmeron Pulse Ox Last 24 Hr 97.6 F-98.5 F 58-67 18-20 121-154/52-67 94-98 GENERAL: The patient is awake, alert, and fully oriented, in no acute distress. HEAD: Normal with no signs of trauma. EYES: PERRL, extraocular movements intact, sclera anicteric, conjunctiva clear. No ptosis. ENT: Ears normal, nares patent, oropharynx clear without exudates, moist mucous membranes. NECK: Trachea midline, full range of motion, supple. LUNGS: Breath sounds equal, clear to auscultation bilaterally, no wheezes, no crackles, no accessory muscle use. HEART: Regular rate and rhythm, S1, S2 without murmur, rub or gallop. ABDOMEN: Soft, nontender, nondistended, normoactive bowel sounds, no guarding, no rebound, no hepatosplenomegaly, no masses. EXTREMITIES: 2+ pulses, warm, well-perfused, no edema. NEUROLOGICAL: Cranial nerves II through XII grossly intact. Normal speech, gait not observed. PSYCH: Normal mood, normal affect. SKIN: Warm, dry, normal turgor, no rashes or lesions noted Laboratory Results - last 24 hr 07/28/18 06:55 PT with INR 19.5 H INR 1.76 H Active Medications Generic Name Dose Route Start Last Admin Trade Name Freq PRN Reason Stop Dose Admin Acetaminophen 650 mg 07/26/18 23:44 07/27/18 17:32 Tylenol - PO 650 mg Q6H PRN Administration FEVER Atenolol 25 mg 07/27/18 10:00 07/27/18 22:52 Tenormin - PO 25 mg BID BREANNA Administration Digoxin 0.125 mg 07/27/18 10:00 07/27/18 09:45 Lanoxin - PO 0.125 mg DAILY BREANNA Administration Diltiazem HCl 360 mg 07/27/18 08:30 07/27/18 08:39 Cardizem Cd - PO 360 mg DAILY BREANNA Administration Furosemide 20 mg 07/27/18 10:00 07/27/18 09:44 Lasix - PO 20 mg DAILY BREANNA Administration Ceftriaxone Sodium 1 gm in 50 mls @ 100 mls/hr 07/27/18 10:00 07/27/18 09:45 Rocephin 1gm Ivpb (Pre-Docked) IVPB 100 mls/hr DAILY BREANNA Administration Protocol Lactobacillus Acidophilus 1 tab 07/27/18 10:15 07/27/18 10:30 Bacid - PO 1 tab DAILY BREANNA Administration Prednisone 5 mg 07/27/18 10:00 07/27/18 09:46 Deltasone - PO 5 mg DAILY BREANNA Administration Sertraline HCl 100 mg 07/27/18 10:00 07/27/18 09:44 Zoloft - PO 100 mg DAILY BREANNA Administration Tramadol HCl 50 mg 07/26/18 23:12 07/27/18 00:29 Ultram - PO 50 mg QID PRN Administration PAIN LEVEL 6-10 Warfarin Sodium 2.5 mg 07/27/18 18:00 07/27/18 17:32 Coumadin - PO 2.5 mg DAILY@1800 BREANNA Administration Microbiology 07/26/18 06:45 Blood - Peripheral Venous Blood Culture - Preliminary Pending Organism 07/26/18 06:45 Blood - Peripheral Venous Blood Culture - Preliminary NO GROWTH OBTAINED AFTER 48 HOURS, INCUBATION TO CONTINUE FOR 3 DAYS. 07/26/18 07:31 Urine - Urine - Catheterized Urine Culture - Final Escherichia Coli 07/27/18 00:00 Nasopharyngeal Swab Influenza Types A,B Antigen - Final, negative 07/27/18 00:00 Nasopharyngeal Swab - Final, negative IMAGING cxr 07/27/18: no CHFor pneumonia noted Echo 07/27/2018 moderate concentric LVH, EF 60-65% moderate TR and mild ASSESSMENT/PLAN: ) cardiovascular Afib with RVR -rate better controlled today 60-70 on ardiac monitoring continous, continue atenolol with parameters and cardizem - troponin x 3 wnl - continue coumadin - cardiology Dr Gaming consulted and followed acute excerbation of chronic congestive heart failure - Patient appears euvolemic on exam, continue home dose Lasix hypertension - BP: Continue Cardizem and atenolol 2) sepsis secondary to UTI -One set of blood cultures positive, repeat blood cultures ordered, Dr. Sparks ID consulted leukocytosis resolved will continue rocephin 3) psych depression - continue home dose zoloft f/e/n - replete potassium and mg - low sodium diet ppx - continue coumadin - pepcid - physical therapy evaluation Dispo: pt currently requires further inpatient management of her emergent condition Visit type - Emergency Visit Emergency Visit: Yes ED Registration Date: 07/26/18 Care time: The patient presented to the Emergency Department on the above date and was hospitalized for further evaluation of their emergent condition. - New Patient This patient is new to me today: No - Critical Care Critical Care patient: No - Discharge Referral Referred to [facility] Med P.C.: No
[2018-07-28] MEDS: predniSONE 5 MG TABLET (UD) PO SCH (10:39)
[2018-07-28] MEDS: LACTOBACILLUS ACIDOPHILUS 1 TABLET PO SCH (10:39)
[2018-07-28] MEDS: DIGOXIN 0.125 MG TABLET (FP) PO SCH (10:39)
[2018-07-28] MEDS: FUROSEMIDE 20 MG TABLET (FP) PO SCH (10:39)
[2018-07-28 10:40] VITALS: PULSE 61
[2018-07-28] MEDS: CEFTRIAXONE 1 GM/50 ML BAG IVPB SCH (10:40)
[2018-07-28] MEDS: SERTRALINE HCL 50 MG TABLET (FP) PO SCH (10:40)
--- NOTE | 2018-07-28 11:30 | PN ---
Progress Note (short form) - Note Progress Note: ID Consult dictated + blood c/s probable contaminant UTI Fever/ leukocytosis improved Repeat BC OK for discharge on po keflex 500mg po bid x7d
--- NOTE | 2018-07-28 11:39 | DS ---
Physical Exam: SUBJECTIVE: Patient seen and examined, sitting at bedside recliner, tolerating diet reports feeling well denies any chest pain palpitations and shortness of breath, ready for discharge home OBJECTIVE:This is an 88 year old female with a past medical history significant for afib on coumadin and HTN who presented to the ED due to SOB, palpitations and not feeling well. Pt was noted to be febrile upon arrival to the ED. Upon exam pt reports feeling much better. The SOB and palpitations have resolved. ER course was notable for: (1) Trop 0.04 (2) BNP 1610 (3) lactic acid 2.5, then up to 3.4 Vital Signs Period Temp Pulse Resp BP Sys/[place] Pulse Ox Last 24 Hr 97.6 F-98.5 F 58-67 18-20 121-154/52-67 94-98 PHYSICAL EXAM GENERAL: The patient is awake, alert, and fully oriented, in no acute distress. HEAD: Normal with no signs of trauma. EYES: PERRL, extraocular movements intact, sclera anicteric, conjunctiva clear. ENT: Ears normal, nares patent, oropharynx clear without exudates, moist mucous membranes. NECK: Trachea midline, full range of motion, supple. LUNGS: Breath sounds equal, clear to auscultation bilaterally, no wheezes, no crackles, no accessory muscle use. HEART: irregular rate and rhythm, S1, S2 without murmur, rub or gallop. ABDOMEN: Soft, nontender, nondistended, normoactive bowel sounds, no guarding, no rebound, no hepatosplenomegaly, no masses. EXTREMITIES: 2+ pulses, warm, well-perfused, no edema. NEUROLOGICAL: Cranial nerves II through XII grossly intact. Normal speech, gait not observed. PSYCH: Normal mood, normal affect. SKIN: Warm, dry, normal turgor, no rashes or lesions noted. LABS Laboratory Results - last 24 hr 07/28/18 06:55 PT with INR 19.5 H INR 1.76 H Microbiology 07/26/18 06:45 Blood - Peripheral Venous Blood Culture - Preliminary Pending Organism 07/26/18 06:45 Blood - Peripheral Venous Blood Culture - Preliminary NO GROWTH OBTAINED AFTER 48 HOURS, INCUBATION TO CONTINUE FOR 3 DAYS. 07/26/18 07:31 Urine - Urine - Catheterized Urine Culture - Final Escherichia Coli 07/27/18 00:00 Nasopharyngeal Swab Influenza Types A,B Antigen - Final 07/27/18 00:00 Nasopharyngeal Swab - Final IMAGING cxr 07/27/18: no CHFor pneumonia noted Echo 07/27/2018 moderate concentric LVH, EF 60-65% moderate TR and mild HOSPITAL COURSE: 1) Afib with RVR -rate better controlled today 60-70 on cardiac monitoring continuos, continue atenolol with parameters and cardizem - troponin x 3 wnl - coumadin restarte 07/27/18-->home dose - cardiology Dr Gaming consulted and followed acute excerbation of chronic systolic congestive heart failure - diuressed on hospital day 1, 1 kg weight loss, Patient appears euvolemic on exam, continue home dose Lasix hypertension - BP: Continue Cardizem and atenolol 2) sepsis resolved secondary to UTI -One set of blood cultures positive discussed with Dr Sparks, ID, likely contaminant, repeat blood cultures ordered, leukocytosis resolved will continue rocephin 3) psych depression - continue home dose zoloft PLAN - discharge home with keflex 500mg bid for 7 days - repeat inr on july 30 - discharge plan and instructions discussed with [id number] Britta, verbalizes understanding all questions answered Date of Admission:07/26/18 Date of Discharge: 07/28/18 Minutes to complete discharge: 45 Discharge Summary Reason For Visit: PULMONARY EDEMA, RAPID ATRIAL FIBRILLATION Current Active Problems Pneumonia (Acute) Pulmonary edema (Acute) Rapid atrial fibrillation (Acute) Condition: Improved - Instructions Diet, Activity, Other Instructions: your atenolol was increased to twice daily as per the recommendation of the brand recorder continue Cardizem daily as prescribed Continue lasix prescribed please continue to weigh yourself daily in the morning continue Coumadin 2.5 mg daily as prescribed and repeat INR on July your urine culture was positive for bacteria and you were treated for urinary tract infection while in the hospital please continue Keflex (antibiotic) twice a day for the next 7 days Please continue probiotic daily Please follow-up with your brand recorder within 2 weeks Please follow-up with your primary care physician within one week for a repeat urinalysis and urine culture Please repeat your INR on , 07/30/2018 Referrals: Reza Gaming MD [Staff Physician] - Disposition: VNS/HOME HEALTH CARE - Home Medications Comprehensive Discharge Medication List: Ambulatory Orders Atenolol [Tenormin] 25 mg PO DAILY 07/26/18 Digoxin [Lanoxin -] 0.125 mg PO DAILY 07/26/18 Diltiazem HCl [Diltiazem ER] 360 mg PO DAILY 07/26/18 Furosemide [Lasix] 20 mg PO DAILY 07/26/18 Prednisone 5 mg PO DAILY 07/26/18 Sertraline HCl 100 mg PO DAILY 07/26/18 Tramadol HCl 50 mg PO QID PRN MDD 200 07/26/18 Warfarin Sodium [Coumadin] 2.5 mg PO DAILY 07/26/18 This patient is new to me today: No Emergency Visit: Yes ED Registration Date: 07/26/18 Care time: The patient presented to the Emergency Department on the above date and was hospitalized for further evaluation of their emergent condition. Critical Care patient: No - Discharge Referral Referred to [facility] No
--- NOTE | 2018-07-28 12:03 | CONS ---
DATE OF CONSULTATION: DATE OF DICTATION: 12/28/2017 An 88-year-old female evaluated for positive blood culture. She was admitted to the hospital on July 26, 2018, with shortness of breath. She was diagnosed with atrial fibrillation with rapid ventricular response and congestive heart failure. Her course was complicated by fever and elevated white blood cell count. Cultures were obtained. She was empirically treated with ceftriaxone. Urine culture was positive for E. coli. Blood cultures are now positive for gram-positive cocci in chains in 1 bottle. She is clinically improved. She is out of bed to chair. She complains of generalized pain; however, denies any chest pain, shortness of breath, cough or sputum production. No dysuria or hematuria. No skin infections. An echocardiogram was performed and was negative for valvular vegetations. Repeat cultures are pending. PAST MEDICAL HISTORY: Positive for hypertension, atrial fibrillation, osteoarthritis, depression. ALLERGIES: SULFA. MEDICATIONS: Atenolol, Lanoxin, diltiazem, Lasix, prednisone, tramadol, Coumadin. SOCIAL HISTORY: She lives at home. She is a nonsmoker, nondrinker. REVIEW OF SYSTEMS: Neurologic: No loss of consciousness, seizure activity, focal weakness. Cardiac: Negative for chest pain or palpitations. Respiratory: Negative for cough or sputum production. Gastrointestinal: Negative vomiting or diarrhea. Genitourinary: Positive for urinary tract infection. LABORATORY DATA: White count on admission 12.7, presently 7.5. Hematocrit 39.2, platelet count 267, creatinine 0.6. Blood cultures: Gram-positive cocci in chains, 1 bottle. Urinalysis: White cells 2-5. Urine culture: E. coli. Chest x-ray negative for acute infiltrate. PHYSICAL EXAMINATION: General: She is out of bed to chair. She is not acutely toxic appearing. Elderly female. Vital Signs: Temperature 98.4, T-max 101.3. Blood pressure 154/67, pulse 65, irregular. Respirations 20 per minute. HEENT: Sclerae are anicteric. Cardiovascular: Heart sounds irregular S1, S2. No murmur. Lungs: Clear bilaterally. Abdomen: Soft. No tenderness elicited. No mass, rebound, or rigidity. Extremities: Edema 1+. No evidence of skin infection noted. IMPRESSION: 1. Status post rapid atrial fibrillation/congestive heart failure. 2. Escherichia coli urinary tract infection. 3. Positive blood culture for alpha streptococcus in 1 bottle. Blood culture likely contaminant. Will repeat blood cultures. May substitute Keflex 500 mg p.o. b.i.d. for an additional 7 days for treatment of urinary tract infection. No objection to discharge. Thank you for the kind referral. JOE RILEY M.D. [id number]
== END 2018-07-28 13:38 | disposition home health service (06) | DRG 308 ==
LOC: FER 06:16 → FM/S 10:14
PROVIDERS: ADMIT Internal Medicine; ATTEND Nurse Practitioner Family
DX: I48.91 Unspecified atrial fibrillation (principal); I50.23 Acute on chronic systolic (congestive) heart failure; N39.0 Urinary tract infection, site not specified; F32.9 Major depressive disorder, single episode, unspecified; M19.90 Unspecified osteoarthritis, unspecified site; R50.9 Fever, unspecified; E87.6 Hypokalemia; D72.829 Elevated white blood cell count, unspecified; I11.0 Hypertensive heart disease with heart failure; Z79.01 Long term (current) use of anticoagulants; R00.0 Tachycardia, unspecified
CPT/HCPCS: 36415; 71045-TC-FY; 71046-TC-FY; 80048; 80053; 80162; 81003; 81015; 82550; 83605; 83735; 83880; 84484; 85025; 85610; 85730; 87040; 87086; 87186; 87804; 93005; 93306-TC; 97116-GP; 97161-GP; 99285-25; J0131